=== PATIENT | female | born 1970 ===

== ENCOUNTER 2022-01-28 17:05 | Emergency (ER) | payer SELFPAY ==
[2022-01-28 17:38] VITALS: BP 154/103
--- NOTE | 2022-01-28 18:01 | XRay Report ---
CHEST 2 VIEWS INDICATION: Chest Pain. COMPARISON: None. FINDINGS: Support devices: None. Heart: Within normal limits. Lungs/Pleura: No acute air space or interstitial disease. No significant pleural effusion. IMPRESSION: No acute findings. Signer Name: Bhavesh Blackwell MD Signed: 01/28/2022 5:57 PM Workstation Name: [email or web address]
[2022-01-28 19:01] LABS: Eosinophils % (Auto) 0.9 % (0.0-4.3); Hematocrit 42.6 % (30.3-42.9); Hemoglobin 13.7 gm/dl (10.1-14.3); INR 0.92 (0.87-1.13); Lymphocytes # (Auto) 2.1 K/mm3 (1.2-5.4); Lymphocytes % (Auto) 45.2 % (13.4-35.0); Mean Corpuscular HGB Conc 32 % (30-34); Mean Corpuscular Volume 83 fl (79-97); Monocytes # (Auto) 0.4 K/mm3 (0.0-0.8); Partial Thromboplastin Time 28.1 Sec. (24.2-36.6); Platelet Count 380 K/mm3 (140-440); Red Blood Count 5.12 M/mm3 (3.65-5.03); Red Cell Distribution Width 14.2 % (13.2-15.2)
[2022-01-28 19:14] LABS: Alanine Aminotransferase 23 units/L (7-56); Albumin 4.5 g/dL (3.9-5); BUN/Creatinine Ratio 13; Blood Urea Nitrogen 12 mg/dL (7-17); Calcium 9.7 mg/dL (8.4-10.2); Hemolysis Index 11
--- NOTE | 2022-01-29 09:55 | Electrocardiograph Report ---
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
== END 2022-01-29 00:41 | disposition left against medical advice (07) ==
LOC: ED 17:05
DX: R07.9 Chest pain, unspecified (principal); Z53.21 Procedure and treatment not carried out due to patient leaving prior to being seen by health care provider
CPT/HCPCS: 36415; 71046; 80053; 84484; 85025; 85610; 85730; 93005